=== PATIENT | female | born 1975 | race Caucasian/White ===

== ENCOUNTER 2018-01-17 20:05 | Emergency (ER) | payer SELFPAY ==
[2018-01-17 20:32] LABS: ABSOLUTE BASOPHILS # (AUTO) 0.1 10^3/uL (0.0-0.2); ABSOLUTE EOSINOPHILS # (AUTO) 0.3 10^3/uL (0.0-0.6); ABSOLUTE LYMPHOCYTES (AUTO) 4.3 10^3/uL (0.5-4.7); ABSOLUTE MONOCYTES (AUTO) 1.2 10^3/uL (0.1-1.4); ABSOLUTE NEUT (AUTO) 7.1 10^3/uL (1.7-8.2); BASOPHILS % (AUTO) 0.7 % (0-2); EOSINOPHILS % (AUTO) 2.4 % (0-6); HEMATOCRIT 44.5 % (36.0-47.0); HEMOGLOBIN 15.4 g/dL (12.0-15.5); LYMPHOCYTES % (AUTO) 33.1 % (13-45); MEAN CORPUSCULAR HEMOGLOBIN 32.8 pg (27.0-33.4); MEAN CORPUSCULAR HGB CONC 34.5 g/dL (32.0-36.0); MEAN CORPUSCULAR VOLUME 95 fl (80-97); PLATELET COUNT 167 10^3/uL (150-450); RED BLOOD COUNT 4.69 10^6/uL (3.72-5.28); RED CELL DISTRIBUTION WIDTH 16.6 % (11.5-14.0); SEGMENTED NEUTROPHILS % (AUTO) 54.8 % (42-78); TOTAL CELLS COUNTED % (AUTO) 100 %; WHITE BLOOD COUNT 12.9 10^3/uL (4.0-10.5)
[2018-01-17 20:38] LABS: APPEARANCE,URINE CLEAR; BILIRUBIN,URINE NEGATIVE (NEGATIVE); COLOR,URINE COLORLESS; GLUCOSE, URINE NEGATIVE (NEGATIVE); KETONES,URINE NEGATIVE (NEGATIVE); LEUKOCYTE ESTERASE,URINE NEGATIVE (NEGATIVE); NITRITE,URINE NEGATIVE (NEGATIVE); PROTEIN,URINE NEGATIVE (NEGATIVE); URINE SPECIFIC GRAVITY 1.001; UROBILINOGEN,URINE NEGATIVE mg/dL (<2.0)
[2018-01-17] MEDS ORDERED: VALPROATE SODIUM INJ/PF 500 MG/5 ML SDV IV ONE (20:46)
[2018-01-17 20:50] LABS: ALANINE AMINOTRANSFERASE 29 U/L (9-52); ALBUMIN 4.9 g/dL (3.5-5.0); ALKALINE PHOSPHATASE 85 U/L (38-126); ANION GAP 17 (5-19); ASPARTATE AMINO TRANSFERASE 27 U/L (14-36); BILIRUBIN,DIRECT 0.2 mg/dL (0.0-0.4); BILIRUBIN,TOTAL 0.3 mg/dL (0.2-1.3); BLOOD UREA NITROGEN 9 mg/dL (7-20); CALCIUM 10.1 mg/dL (8.4-10.2); CARBON DIOXIDE 21 mmol/L (22-30); CHLORIDE 106 mmol/L (98-107); GLUCOSE 84 mg/dL (75-110); POTASSIUM 4.1 mmol/L (3.6-5.0); SODIUM 143.6 mmol/L (137-145); TOTAL PROTEIN 7.5 g/dL (6.3-8.2)
[2018-01-17 20:51] LABS: URINE AMPHETAMINES SCREEN NEGATIVE; URINE BARBITURATES SCREEN NEGATIVE; URINE BENZODIAZEPINES SCREEN NEGATIVE; URINE COCAINE SCREEN NEGATIVE; URINE MARIJUANA (THC) SCREEN NEGATIVE; URINE METHADONE SCREEN NEGATIVE; URINE PHENCYCLIDINE SCREEN NEGATIVE
--- NOTE | 2018-01-17 20:51 | ER Document Report ---
ED Seizure - General Chief Complaint: Probable Seizure Stated Complaint: POSSIBLE SEIZURE Time Seen by Provider: 01/17/18 20:34 Mode of Arrival: Ambulatory Information source: Patient, Relative - HPI Patient complains to provider of: History of seizures Notes: Patient is here with complaints of seizure. The patient has a history of seizures. She is supposed to be on Depakote. She tells me that she has not been on the Depakote for over a month due to the fact that they just moved to [place] she does not have a primary care doctor here. She denies any recent fevers. She had one episode of vomiting earlier today. She is chronic abdominal pain. She denies any headache, blurred vision, unilateral numbness, tingling, weakness. She has apparently had 3 seizures today. They are her typical seizures. She denies any injuries from the seizures. Last seizure was 2 weeks ago. This point the patient has no significant complaints. No dysuria or hematuria. No other complaints at this time. - Related Data Allergies/Adverse Reactions: No Known Allergies Allergy (Unverified 01/17/18 20:13) Past Medical History - Social History Smoking Status: Current Every Day Smoker Family History: Reviewed & Not Pertinent Patient has suicidal ideation: No Patient has homicidal ideation: No Neurological Medical History: Reports: Hx Seizures Renal/ Medical History: Denies: Hx Peritoneal Dialysis Review of Systems - Review of Systems -: Yes All other systems reviewed and negative Physical Exam - Vital signs Vitals: Resp Pulse Ox 15 98 01/17/18 20:10 01/17/18 20:10 - Notes Notes: GENERAL: alert, cooperative, nontoxic, no distress. HEAD: normocephalic, atraumatic EYES: conjunctiva pink without discharge, no external redness or swelling. Pupils are equal, round, reactive to light. EARS: no external swelling, no external redness NOSE: atraumatic, no external swelling MOUTH/THROAT: mucous membranes moist and pink, posterior pharynx without erythema, swelling, exudate. No trismus or drooling. NECK: soft, supple, full range of motion, no meningismus. CHEST: no distress, lungs clear and equal throughout. No wheezing, rales, rhonchi. CARDIAC: regular rate and rhythm, no murmur, normal capillary refill, normal pulses. No peripheral edema noted. BACK: full range of motion, no CVA tenderness. ABDOMEN: Mild tenderness to the lower abdomen. The patient states that this is chronic. No rebound tenderness. EXTREMITIES: full range of motion of all extremities. No redness, no swelling. NEURO: alert and oriented x 3, cranial nerves II through XII are grossly intact. Upper and lower extremities are equal throughout. Normal sensation. No focal deficits, full range of motion of all extremities. normal finger to nose. PYSCH: appropriate mood, affect. Patient is cooperative. SKIN: pink, warm, dry, no rash. Course - Re-evaluation Re-evalutation: 01/17/18 22:28 The patient is nontoxic appearing with stable vitals. The patient has a history of seizures and has been out of her Depakote for 1 month. She had a seizure 2 weeks ago. And reports that she has had a few seizures today. She does have a positive alcohol over 300. I asked the patient if she is a daily drinker to be sure that she is not going through withdrawals causing her seizures, she states that she is absolutely not a daily drinker and that she had a large amount alcohol today because she was sad. She denies any homicidal or suicidal ideation. This point the patient has a benign exam with no acute findings. Lab work is unremarkable for significant findings. Patient states she is feeling significantly better and is ready to go home. Patient took Depakote 500 mg twice daily. I will write a refill for her Depakote and will refer her to neurology as well as primary care to get established with a doctor here in [place]. She is instructed to follow-up with these doctors at the next available appointment. She should follow-up sooner for her seizures, severe headache, fever, any further concerns. The patient is noted to have elevated blood pressure during today's emergency department visit. The patient was informed of this finding. The patient was instructed that this may be related to pre-hypertension and requires further evaluation with a primary care provider. The patient has no hypertensive symptoms at this time. The patient's emergency department workup and current diagnosis were explained to the patient and or family. Follow-up instructions were provided. Medications if prescribed were discussed. Instructions for when to return to the emergency department including specific worrisome symptoms were discussed with the patient and/or family. - Vital Signs Vital signs: Temp Pulse Resp BP Pulse Ox 14 100/74 96 01/17/18 22:00 03/06/18 22:00 01/17/18 22:00 - Laboratory Result Diagrams: 01/17/18 20:10 01/17/18 20:10 Laboratory results interpreted by me: 01/17/18 01/17/18 20:10 20:10 WBC 12.9 H RDW 16.6 H Carbon Dioxide 21 L Magnesium 2.4 H Serum Alcohol 310 H* Discharge - Discharge Clinical Impression: Seizure disorder, Medicine refill Acute alcohol intoxication Qualifiers: Complication of substance-induced condition: uncomplicated Qualified Code(s): F10.929 - Alcohol use, unspecified with intoxication, unspecified Condition: Stable Disposition: HOME, SELF-CARE Instructions: Seizure, Known Epileptic ([facility]), Acute Alcohol Intoxication ([facility]) Additional Instructions: Take medications as prescribed. Get established with a neurologist or primary care doctor at the next available appointment. Follow-up sooner for further seizure activity, high fevers, persistent vomiting, numbness, tingling, weakness , or for any further concerns. Your blood pressure was elevated during today's visit. Have this rechecked with your doctor. Prescriptions: Divalproex Sodium [Depakote] 500 mg PO BID #60 tablet.dr Forms: Elevated Blood Pressure, Smoking Cessation Education Referrals: JULIA BROWN MD [NO LOCAL MD] - Follow up as needed [facility] [Provider Group] - Follow up as needed
[2018-01-17 21:08] LABS: ALCOHOL 310 mg/dL (NONE DETECTED)
[2018-01-17 22:45] VITALS: BP 110/54
== END 2018-01-17 22:43 | disposition home or self-care (01) ==
LOC: ER 20:05
DX: G40.909 Epilepsy, unspecified, not intractable, without status epilepticus (principal); F17.200 Nicotine dependence, unspecified, uncomplicated; F10.929 Alcohol use, unspecified with intoxication, unspecified
CPT/HCPCS: 99284; 36415; 80307 ×2; 83735; 84703; 85025; 80053; 81001; J3490

== ENCOUNTER 2018-05-05 17:14 | Emergency (ER) | payer SELFPAY ==
[2018-05-05 17:32] VITALS: BP 116/73
== END 2018-05-05 18:00 | disposition left against medical advice (07) ==
LOC: ER 17:14
DX: Z53.21 Procedure and treatment not carried out due to patient leaving prior to being seen by health care provider (principal)

== ENCOUNTER 2018-05-06 11:19 | Emergency (ER) | payer SELFPAY ==
--- NOTE | 2018-05-06 11:50 | ER Document Report ---
ED General - General Chief Complaint: Leg Injury Stated Complaint: RIGHT LEG PAIN Time Seen by Provider: 05/06/18 11:25 Mode of Arrival: Ambulatory Information source: Patient Notes: 42 yr old female presents with a right upper leg injury of 2 day duration. Pt notes she was drunk, fell and injured herself. notes it hurts to ambulate. denies any chest pain sob, difficulty breathing. denies any previous similar bruising , denies any calf pain or edema, denies any dvt or pe risk factors. TRAVEL OUTSIDE OF THE [place] IN LAST 30 DAYS: No - HPI Onset: Just prior to arrival Onset/Duration: Sudden Quality of pain: Achy Severity: Mild Pain Level: 1 Associated symptoms: Leg swelling Exacerbated by: Walking Relieved by: Denies Similar symptoms previously: No Recently seen / treated by doctor: No - Related Data Allergies/Adverse Reactions: No Known Allergies Allergy (Verified 05/06/18 11:20) Past Medical History - Social History Smoking Status: Current Every Day Smoker Cigarette use (# per day): Yes Chew tobacco use (# tins/day): No Smoking Education Provided: No Family History: Reviewed & Not Pertinent Neurological Medical History: Reports: Hx Seizures Renal/ Medical History: Denies: Hx Peritoneal Dialysis Review of Systems - Review of Systems Notes: REVIEW OF SYSTEMS: CONSTITUTIONAL : Denies fever, chills, or sweats. Denies recent illness. EENT: Denies eye, ear, throat, or mouth pain or symptoms. Denies nasal or sinus congestion or discharge. Denies throat, tongue, or mouth swelling or difficulty swallowing. CARDIOVASCULAR: Denies chest pain. Denies palpitations or racing or irregular heart beat. Denies ankle edema. RESPIRATORY: Denies cough, cold, or chest congestion. Denies shortness of breath, difficulty breathing, or wheezing. GASTROINTESTINAL: Denies abdominal pain or distention. Denies nausea, vomiting , or diarrhea. Denies blood in vomitus, stools, or per rectum. Denies black, tarry stools. Denies constipation. GENITOURINARY: Denies difficulty urinating, painful urination, burning, frequency, blood in urine, or discharge. FEMALE GENITOURINARY: Denies vaginal bleeding, heavy or abnormal periods, irregular periods. Denies vaginal discharge or odor. MUSCULOSKELETAL: leg pain SKIN: Denies rash, lesions or sores. HEMATOLOGIC : admits to bruising of the leg LYMPHATIC: Denies swollen, enlarged glands. NEUROLOGICAL: Denies confusion or altered mental status. Denies passing out or loss of consciousness. Denies dizziness or lightheadedness. Denies headache. Denies weakness or paralysis or loss of use of either side. Denies problems with gait or speech. Denies sensory loss, numbness, or tingling. Denies seizures. PSYCHIATRIC: Denies anxiety or stress. Denies depression, suicidal ideation, or homicidal ideation. ALL OTHER SYSTEMS REVIEWED AND NEGATIVE. PHYSICAL EXAMINATION: GENERAL: Well-appearing, well-nourished and in no acute distress. HEAD: Atraumatic, normocephalic. EYES: Pupils equal round and reactive to light, extraocular movements intact, conjunctiva are normal. ENT: Nares patent, oropharynx clear without exudates. Moist mucous membranes. NECK: Normal range of motion, supple without lymphadenopathy LUNGS: Breath sounds clear to auscultation bilaterally and equal. No wheezes rales or rhonchi. HEART: Regular rate and rhythm without murmurs ABDOMEN: Soft, nontender, nondistended abdomen. No guarding, no rebound. No masses appreciated. Female : deferred Musculoskeletal: Normal range of motion, no pitting or edema. No cyanosis. NEUROLOGICAL: Cranial nerves grossly intact. Normal speech, normal gait. Normal sensory, motor exams PSYCH: Normal mood, normal affect. SKIN: large area o echymosis of the right anterior thigh, pulses intact, hematoma noted Dictation was performed using [employer] voice recognition software Physical Exam - Vital signs Vitals: Temp Pulse Resp BP Pulse Ox 99.4 F 109 H 20 134/85 H 96 05/06/18 11:23 05/06/18 11:23 05/06/18 11:23 05/06/18 11:23 05/06/18 11:23 Course - Re-evaluation Re-evalutation: 05/06/18 11:49 Patient has a large hematoma the right anterior thigh, there is no signs of compartment syndrome, I do not believe the patient has DVT, she overall looks well otherwise we will x-ray to rule out fracture 05/06/18 13:12 no fracture noted no dvt noted , will dc home After performing a Medical Screening Examination, I estimate there is LOW risk forACUTE TENDON RUPTURE, COMPARTMENT SYNDROME, or DVT, thus I consider the discharge disposition reasonable. Also, there is no evidence or peritonitis, sepsis, or toxicity. I have reevaluated this patient multiple times and no significant life threatening changes are noted. The patient and I have discussed the diagnosis and risks, and we agree with discharging home to follow- up with their primary doctor with the understanding that symptoms and presentations can change. We also discussed returning to the Emergency Department immediately if new or worsening symptoms occur. We have discussed the symptoms which are most concerning (e.g., bloody stool, fever, changing or worsening pain, vomiting) that necessitate immediate return. - Vital Signs Vital signs: Temp Pulse Resp BP Pulse Ox 99.4 F 109 H 20 134/85 H 96 05/06/18 11:23 05/06/18 11:23 05/06/18 11:23 05/06/18 11:23 05/06/18 11:23 - Diagnostic Test Radiology reviewed: Reports reviewed Discharge - Discharge Clinical Impression: Hematoma Condition: Stable Disposition: HOME, SELF-CARE Instructions: Hematoma ([facility]) Additional Instructions: Follow up with your physician tomorrow for further care or return to the ED IMMEDIATELY if symptoms worsen or new concerns occur. If you cannot afford to follow up with your primary care physician a list of low cost clinics have been provided at the end of your discharge papers as well.
[2018-05-06] MEDS ORDERED: IBUPROFEN 600 MG TABLET PO ONE (13:06)
--- NOTE | 2018-05-06 13:10 | RADIOLOGY REPORT (SQ) ---
EXAM DESCRIPTION: FEMUR RIGHT COMPLETED DATE/TIME: 05/06/2018 12:19 pm REASON FOR STUDY: fall COMPARISON: None. NUMBER OF VIEWS: Two views, 6 images of the right femur. LIMITATIONS: None. FINDINGS: There is no acute or significant bone, joint or soft tissue abnormality. OTHER: No other significant finding. IMPRESSION: NORMAL STUDY. TECHNICAL DOCUMENTATION: JOB ID: [id number] Reading location - IP/workstation name: [email or web address]
[2018-05-06 13:36] VITALS: BP 115/87
== END 2018-05-06 13:36 | disposition home or self-care (01) ==
LOC: ER 11:19
DX: S80.11XA Contusion of right lower leg, initial encounter (principal); W19.XXXA Unspecified fall, initial encounter; F17.210 Nicotine dependence, cigarettes, uncomplicated
CPT/HCPCS: 99283